=== PATIENT | female | born 1945 | race Hispanic/Latino ===

== ENCOUNTER 2022-08-05 09:39 | Outpatient (CLI) | payer MEDICARE | END 2022-08-05 09:40 | disposition home or self-care (01) | LOC: SCSMRI 09:39 | PROVIDERS: ATTEND Nurse Practitioner Adult Health | DX: M25.561 Pain in right knee (principal); S83.241A Other tear of medial meniscus, current injury, right knee, initial encounter; M94.261 Chondromalacia, right knee | CPT/HCPCS: 70250 ==